=== PATIENT | male | born 1960 | race Caucasian/White ===

== ENCOUNTER 2019-05-03 17:31 | Emergency (ER) | payer OTHER ==
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
[2019-05-03 18:01] VITALS: PULSE 72; TEMP 98.5; BMI 29.7
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
[2019-05-03 19:12] VITALS: BP 145/100
== END 2019-05-03 19:17 | disposition home or self-care (01) ==
LOC: FER 17:31
DX: Z04.1 Encounter for examination and observation following transport accident (principal); S09.90XA Unspecified injury of head, initial encounter; E11.9 Type 2 diabetes mellitus without complications
CPT/HCPCS: 70450-TC; 71046-TC-FY; 99284-25